=== PATIENT | male | born 1965 ===

== ENCOUNTER 2020-02-13 14:50 | Emergency (ER) | payer SELFPAY ==
[~2020-02-13] VITALS: Ht 167.6 cm; Wt 68.0 kg
[2020-02-13 15:54] LABS: BASOPHILS ABSOLUTE AUTO 0.04 K/mm3 (0.00-0.23); BASOPHILS PERCENT AUTO 1 % (0-2); EOSINOPHILS ABSOLUTE AUTO 0.09 K/mm3 (0.00-0.68); EOSINOPHILS PERCENT AUTO 2 % (0-6); Hematocrit 46.1 % (37.0-53.0); Hemoglobin 16.2 g/dL (13.5-17.5); IMMATURE GRAN PERCENT AUTO 0 % (0-1); LYMPHOCYTES ABSOLUTE AUTO 1.99 K/mm3 (0.84-5.20); LYMPHOCYTES PERCENT AUTO 43 % (21-46); MONOCYTES ABSOLUTE AUTO 0.29 K/mm3 (0.16-1.47); MONOCYTES PERCENT AUTO 6 % (4-13); Mean Corpuscular HGB 31.2 pg (26.0-34.0); Mean Corpuscular HGB Conc 35.1 g/dL (31.5-36.5); Mean Corpuscular Volume 89 fL (80-100); Mean Platelet Volume 9.4 fL (9.1-12.4); NEUTROPHILS ABSOLUTE AUTO 2.18 K/mm3 (1.96-9.15); NEUTROPHILS PERCENT AUTO 47 % (41-73); Platelet Count 123 K/mm3 (150-400); RDW Coefficient Variation 12.2 % (11.7-14.2); Red Blood Cell Count 5.19 M/mm3 (4.30-5.90); White Blood Cell Count 4.59 K/mm3 (4.00-11.30)
[2020-02-13 16:15] LABS: Troponin I <0.015 ng/mL (0.000-0.040)
[2020-02-13 16:16] LABS: Alanine Aminotransfer (ALT/SGP 27 U/L (12-78); Albumin, Blood 3.9 g/dL (3.4-5.0); Albumin/Globulin Ratio 0.9 (0.8-1.8); Alk Phos 99 U/L (50-136); Anion Gap 8 mmol/L (6-16); Aspartate Aminotrans (AST/SGOT 46 U/L (12-37); Bilirubin, Total 1.5 mg/dL (0.1-1.0); Blood Urea Nitrogen 6 mg/dL (8-24); Bun/Creatinine Ratio 8.8 (12.0-20.0); CO2, Blood 26 mmol/L (21-32); Chloride, Blood 106 mmol/L (98-108); Creatinine, Blood 0.69 mg/dL (0.60-1.20); Globulin, Blood 4.2 g/dL (2.2-4.0); Glomerular Filtration Rate >60 (60-); Glucose, Blood 111 mg/dL (70-99); Potassium, Blood 3.6 mmol/L (3.5-5.5); Sodium, Blood 140 mmol/L (136-145); Total Protein, Blood 8.1 g/dL (6.4-8.2)
[2020-02-13 16:26] LABS: Ethanol (Alcohol), Blood, Med 377 mg/dL
[2020-02-13] MEDS ORDERED: PEPCID40 MG PO (16:41)
[2020-02-14] MEDS ORDERED: LOPE2C PO (02:05)
== END 2020-02-13 17:52 | disposition home or self-care (01) ==
LOC: ER 14:50
PROVIDERS: Emergency Medicine
DX: K29.20 Alcoholic gastritis without bleeding (principal); F10.10 Alcohol abuse, uncomplicated
CPT/HCPCS: 80053; 83690; 84484; 85025; 93005; 93010; 96365; 96375; 99284-25; G0480; J2405; J3411; J3475; J7042

== ENCOUNTER 2020-02-13 23:59 | Emergency (ER) | payer SELFPAY ==
[~2020-02-13] VITALS: Ht 165.1 cm; Wt 59.0 kg
[~2020-02-13 23:59] MED LIST: PEPCID40 MG PO
[2020-02-14 00:34] LABS: BASOPHILS ABSOLUTE AUTO 0.05 K/mm3 (0.00-0.23); BASOPHILS PERCENT AUTO 1 % (0-2); EOSINOPHILS ABSOLUTE AUTO 0.08 K/mm3 (0.00-0.68); EOSINOPHILS PERCENT AUTO 2 % (0-6); Hematocrit 45.6 % (37.0-53.0); Hemoglobin 15.6 g/dL (13.5-17.5); IMMATURE GRAN PERCENT AUTO 0 % (0-1); LYMPHOCYTES ABSOLUTE AUTO 2.61 K/mm3 (0.84-5.20); LYMPHOCYTES PERCENT AUTO 53 % (21-46); MONOCYTES ABSOLUTE AUTO 0.29 K/mm3 (0.16-1.47); MONOCYTES PERCENT AUTO 6 % (4-13); Mean Corpuscular HGB 30.9 pg (26.0-34.0); Mean Corpuscular HGB Conc 34.2 g/dL (31.5-36.5); Mean Corpuscular Volume 90 fL (80-100); Mean Platelet Volume 9.3 fL (9.1-12.4); NEUTROPHILS PERCENT AUTO 39 % (41-73); Platelet Count 105 K/mm3 (150-400); RDW Coefficient Variation 12.3 % (11.7-14.2); Red Blood Cell Count 5.05 M/mm3 (4.30-5.90); White Blood Cell Count 4.93 K/mm3 (4.00-11.30)
[2020-02-14 00:52] LABS: Alanine Aminotransfer (ALT/SGP 29 U/L (12-78); Alk Phos 107 U/L (50-136); Anion Gap 5 mmol/L (6-16); Aspartate Aminotrans (AST/SGOT 47 U/L (12-37); Blood Urea Nitrogen 7 mg/dL (8-24); Bun/Creatinine Ratio 9.2 (12.0-20.0); CO2, Blood 31 mmol/L (21-32); Calcium, Blood 8.9 mg/dL (8.5-10.1); Chloride, Blood 107 mmol/L (98-108); Creatinine, Blood 0.76 mg/dL (0.60-1.20); Globulin, Blood 4.1 g/dL (2.2-4.0); Glomerular Filtration Rate >60 (60-); Glucose, Blood 111 mg/dL (70-99); Potassium, Blood 3.6 mmol/L (3.5-5.5); Sodium, Blood 143 mmol/L (136-145); Total Protein, Blood 8.1 g/dL (6.4-8.2)
[2020-02-14] MEDS ORDERED: LOPE2C PO (02:05)
[2020-02-15] MEDS ORDERED: DIPATR PO (20:14)
[2020-02-15] MEDS ORDERED: PROM25 PO (20:14)
[2020-02-15] MEDS ORDERED: Pepcid20 MG PO (20:14)
== END 2020-02-14 03:15 | disposition home or self-care (01) ==
LOC: ER 23:59
PROVIDERS: Emergency Medicine
DX: R11.2 Nausea with vomiting, unspecified (principal); R19.7 Diarrhea, unspecified; F10.10 Alcohol abuse, uncomplicated; Z79.899 Other long term (current) drug therapy
CPT/HCPCS: 74177; 80053; 83690; 85025; 96374; 96375; 99284; J2405; J3010; J7030; Q9967

== ENCOUNTER 2020-02-15 17:51 | Emergency (ER) | payer SELFPAY ==
[~2020-02-15] VITALS: Ht 167.6 cm; Wt 80.3 kg
[~2020-02-15 17:51] MED LIST changes: +LOPE2C PO
[2020-02-15 18:43] LABS: BASOPHILS ABSOLUTE AUTO 0.03 K/mm3 (0.00-0.23); BASOPHILS PERCENT AUTO 1 % (0-2); EOSINOPHILS PERCENT AUTO 2 % (0-6); Hematocrit 46.4 % (37.0-53.0); Hemoglobin 15.9 g/dL (13.5-17.5); IMMATURE GRAN ABSOLUTE AUTO 0.01 K/mm3 (0.00-0.10); IMMATURE GRAN PERCENT AUTO 0 % (0-1); LYMPHOCYTES ABSOLUTE AUTO 1.17 K/mm3 (0.84-5.20); LYMPHOCYTES PERCENT AUTO 26 % (21-46); MONOCYTES ABSOLUTE AUTO 0.41 K/mm3 (0.16-1.47); MONOCYTES PERCENT AUTO 9 % (4-13); Mean Corpuscular HGB Conc 34.3 g/dL (31.5-36.5); Mean Corpuscular Volume 90 fL (80-100); Mean Platelet Volume 11.8 fL (9.1-12.4); NEUTROPHILS ABSOLUTE AUTO 2.71 K/mm3 (1.96-9.15); NEUTROPHILS PERCENT AUTO 61 % (41-73); Platelet Count 60 K/mm3 (150-400); RDW Coefficient Variation 12.5 % (11.7-14.2); RDW Standard Deviation 41.9 fL (35.1-46.3); Red Blood Cell Count 5.13 M/mm3 (4.30-5.90); White Blood Cell Count 4.43 K/mm3 (4.00-11.30)
[2020-02-15 19:11] LABS: Source, Urine Voided
[2020-02-15 19:18] LABS: Appearance, Urine Clear (Clear); Bilirubin, Urine Neg (Neg); Blood, Urine 1+ (Neg); Color, Urine Yellow (P-Yellow); Glucose Qualitative, Urine Neg (Neg); Ketones, Urine Neg (Neg); Leukocyte Esterase, Urine Neg (Neg); Nitrite, Urine Neg (Neg); Protein, Urine Neg (Neg); Urobilinogen, Urine NORM (Normal)
[2020-02-15 19:41] LABS: Red Blood Cells, Urine 0-2 /hpf (0-2); White Blood Cells, Urine 0-2 /hpf (0-5)
[2020-02-15 19:41] LABS: Alanine Aminotransfer (ALT/SGP 31 U/L (12-78); Alk Phos 101 U/L (50-136); Anion Gap 8 mmol/L (6-16); Aspartate Aminotrans (AST/SGOT 67 U/L (12-37); Blood Urea Nitrogen 8 mg/dL (8-24); Bun/Creatinine Ratio 11.9 (12.0-20.0); CO2, Blood 27 mmol/L (21-32); Calcium, Blood 8.5 mg/dL (8.5-10.1); Chloride, Blood 104 mmol/L (98-108); Creatinine, Blood 0.67 mg/dL (0.60-1.20); Globulin, Blood 4.1 g/dL (2.2-4.0); Glomerular Filtration Rate >60 (60-); Glucose, Blood 91 mg/dL (70-99); Potassium, Blood 3.4 mmol/L (3.5-5.5); Sodium, Blood 139 mmol/L (136-145); Total Protein, Blood 8.1 g/dL (6.4-8.2)
[2020-02-15 19:42] LABS: Bacteria Rare /hpf; Squamous Epithelial Cells Rare /hpf (Few)
[2020-02-15] MEDS ORDERED: Pepcid20 MG PO (20:14)
[2020-02-15] MEDS ORDERED: PROM25 PO (20:14)
[2020-02-15] MEDS ORDERED: DIPATR PO (20:14)
== END 2020-02-15 20:40 | disposition home or self-care (01) ==
LOC: ER 17:51
PROVIDERS: Emergency Medicine
DX: K52.9 Noninfective gastroenteritis and colitis, unspecified (principal); K29.70 Gastritis, unspecified, without bleeding
CPT/HCPCS: 36415; 80053; 81001; 85025; 96374; 96375; 99284-25; J2405